=== PATIENT | female | born 1960 | race Caucasian/White ===

== ENCOUNTER 2018-01-06 12:53 | Emergency (ER) | payer MEDICAID ==
[~2018-01-06] VITALS: Ht 172.7 cm; Wt 145.5 kg
[2018-01-06 13:32] VITALS: Ht 172.7 cm; Wt 145.5 kg
[2018-01-06] MEDS ORDERED: PERMETHRIN60 GM TOPICAL (14:12)
[2018-01-06 14:38] VITALS: BP 135/80
== END 2018-01-06 14:40 | disposition home or self-care (01) ==
LOC: D.ER 12:53
DX: S30.860A Insect bite (nonvenomous) of lower back and pelvis, initial encounter (principal); S30.864A Insect bite (nonvenomous) of vagina and vulva, initial encounter; W57.XXXA Bitten or stung by nonvenomous insect and other nonvenomous arthropods, initial encounter; Y93.89 Activity, other specified; Y92.019 Unspecified place in single-family (private) house as the place of occurrence of the external cause

== ENCOUNTER 2020-07-02 13:54 | Emergency (ER) | payer OTHER ==
[~2020-07-02] VITALS: Ht 172.7 cm; Wt 124.1 kg
[~2020-07-02 13:54] MED LIST: PERMETHRIN60 GM TOPICAL
[2020-07-02 14:04] VITALS: Ht 172.7 cm; Wt 124.1 kg
[2020-07-02 15:53] LABS: BILIRUBIN NEGATIVE (NEGATIVE); KETONE NEGATIVE (NEGATIVE); NITRITE NEGATIVE (NEGATIVE); UROBILINOGEN NORMAL mg/dL (< 2)
[2020-07-02] MEDS ORDERED: METHOCARBAMOL500 MG PO (17:08)
[2020-07-02 17:23] VITALS: BP 120/72
== END 2020-07-02 17:24 | disposition home or self-care (01) ==
LOC: D.ER 13:54
PROVIDERS: Family Medicine
DX: R10.9 Unspecified abdominal pain (principal); G89.29 Other chronic pain